=== PATIENT | male | born 1970 | race African-American/Black ===

== ENCOUNTER 2018-12-20 19:09 | Emergency (ER) | payer OTHER ==
[~2018-12-20] VITALS: Ht 172.7 cm; Wt 70.5 kg
[~2018-12-20 19:09] MED LIST: CEPH-443 PO; HYDR-3498 PO
[2018-12-20 19:18] VITALS: Ht 172.7 cm; Wt 70.5 kg
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
[2018-12-20] MEDS ORDERED: LACTATED RINGER'S 1,000 ML IV ONE (21:30)
[2018-12-21] MEDS ORDERED: POTASSIUM CHLORIDE 20 MEQ POWDER FOR ORAL SOLN PO ONE
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
[2018-12-21] MEDS ORDERED: MULTIVITAMINS 10 ML, THIAMINE 100 MG, FOLIC ACID 1 MG, MAGNESIUM SULFATE 2 GM in SOD CH... IV ONE (01:30)
[2018-12-21] MEDS ORDERED: LORAZEPAM 1 MG TAB PO ONE (01:30)
[2018-12-21] MEDS ORDERED: OLANZAPINE 5 MG TAB PO ONE (01:30)
[2018-12-21 07:45] VITALS: BP 122/78; PULSE 70; RESP 16
== END 2018-12-21 09:57 ==
LOC: E/R 19:09 → EDBD 19:09 → MERGE 19:09 → E/R 12-21 09:57
DX: G93.40 Encephalopathy, unspecified (principal); F10.921 Alcohol use, unspecified with intoxication delirium; F15.10 Other stimulant abuse, uncomplicated; F23 Brief psychotic disorder; R40.2122 Coma scale, eyes open, to pain, at arrival to emergency department; R40.2212 Coma scale, best verbal response, none, at arrival to emergency department; R40.2312 Coma scale, best motor response, none, at arrival to emergency department
CPT/HCPCS: 70450; 80048; 80307; 85025; 96374; J3411; J3475; J7030; J7120; Z7502; Z7610